=== PATIENT | female | born 1965 | race Caucasian/White ===

== ENCOUNTER → 2024-05-25 16:30 | Outpatient (REF) | payer OTHER, SELFPAY | LOC: HWRAD 16:30 | PROVIDERS: ATTENDING PHYSICIAN Podiatrist Foot & Ankle Surgery; FAMILY PHYSICIAN Nurse Practitioner | DX: M20.11 Hallux valgus (acquired), right foot (principal); M20.12 Hallux valgus (acquired), left foot; M84.374A Stress fracture, right foot, initial encounter for fracture | CPT/HCPCS: 73630 ==

== ENCOUNTER → 2024-06-16 15:41 | Outpatient (REF) | payer OTHER, SELFPAY | LOC: HWWDC 15:41 | PROVIDERS: ATTENDING PHYSICIAN Nurse Practitioner | DX: Z12.31 Encounter for screening mammogram for malignant neoplasm of breast (principal) | CPT/HCPCS: 77063; 77067 ==

== ENCOUNTER → 2025-01-03 16:40 | Outpatient (REF) | payer OTHER, SELFPAY | LOC: HWRAD 16:40 | PROVIDERS: ATTENDING PHYSICIAN Internal Medicine | DX: Z00.00 Encounter for general adult medical examination without abnormal findings (principal); M54.2 Cervicalgia | CPT/HCPCS: 72050 ==

== ENCOUNTER → 2025-10-05 14:37 | Outpatient (REF) | payer OTHER, SELFPAY | LOC: HWWDC 14:37 | PROVIDERS: ATTENDING PHYSICIAN Internal Medicine | DX: Z12.31 Encounter for screening mammogram for malignant neoplasm of breast (principal) | CPT/HCPCS: 77063; 77067 ==

== ENCOUNTER → 2025-10-06 18:17 | Outpatient (REF) | payer OTHER, SELFPAY | LOC: PAVMRI 18:17 | PROVIDERS: ATTENDING PHYSICIAN Internal Medicine | DX: M54.2 Cervicalgia (principal); G89.29 Other chronic pain; M54.50 Low back pain, unspecified | CPT/HCPCS: 72141 ==

== ENCOUNTER 2025-10-31 23:42 | Inpatient (IN) | payer OTHER, SELFPAY ==
[2025-10-31] VITALS (23 sets, daily range): BP systolic 106–152; BP diastolic 73–97; BMI 22.7
[2025-10-31 20:55] LABS: Hematocrit 36.8 % (37.0-47.0); Hemoglobin 12.4 g/dL (12.0-16.0); Mean Corp Hgb Conc. 33.7 g/dL (33.0-37.0); Mean Corpuscular Volume 89.1 fL (81.0-99.0); Platelet Count 175 10^3/uL (130-400); Red Cell Dist. Width 12.3 % (11.5-14.5)
[2025-10-31 21:04] LABS: ALT (SGPT) 14 U/L (0-35); AST (SGOT) 24 U/L (14-36); Albumin 4.0 g/dl (3.5-5.0); Alkaline Phosphatase 82 U/L (38-126); Blood Urea Nitrogen 12 mg/dl (7-17); Calcium 8.7 mg/dl (8.4-10.2); Carbon Dioxide 25 mmol/L (22-30); Chloride 102 mmol/L (98-107); Glucose 135 mg/dl (70-99); Potassium 3.3 mmol/L (3.5-5.1); Sodium 135 mmol/L (135-145); Total Protein 6.9 g/dl (6.3-8.2); eGFR > 60.00
[2025-10-31 21:17] LABS: Nucleated Red Blood Cells % 0 %
[2025-10-31 21:20] LABS: Troponin I 0.882 ng/ml
--- NOTE | 2025-10-31 21:44 | ED.GENMED ---
History of Present Illness
<Demar Everett PA-C - Last Filed: 10/31/25 23:27>
General
Chief Complaint: Chest Pain
Time Seen by Provider: 10/31/25 21:29
History of Present Illness
History of Present Illness:
59-year-old female with history of ohe-aefvios-utndmjrgi diabetes presents to the emergency department for evaluation of chest pain that began gradually and worsened throughout the day. She notes that she has had URI symptoms for the past 3 to 4
days, fever on day 1 that is since resolved. Mild cough as well. She was visiting her father today who has since passed however pain began prior to this. Chest pain is rated 6 out of 10, nonradiating, nonpleuritic. No exertional or positional
nature to the pain. No prior history of CAD.
Review of Systems
<Demar Everett PA-C - Last Filed: 10/31/25 23:27>
Review of Systems
Allergies reviewed?: Yes
All Other Systems: ROS reviewed and negative except as documented in HPI and ROS
Phy Exam
<Demar Everett PA-C - Last Filed: 10/31/25 23:27>
Physical Exam
Physical Exam:
GEN: Well appearing, NAD, WDWN
HEENT: Oral mucosa moist, no scleral icterus
Cardiac: Regular rate and rhythm, no murmur
Lung: No respiratory distress, no tachypnea, lungs clear to auscultation bilaterally
MSK: No gross deformity or injuries
Skin: Good color, no pallor or jaundice, no rashes
Neuro: AO x3, moves all extremities freely
Psych: Calm, cooperative
Scores
<Demar Everett PA-C - Last Filed: 10/31/25 23:27>
Heart Score for Chest Pain Patients
STEMI patient?: No
History: Moderately Suspicious
ECG: Normal
Age: >45 - <65 years
Risk Factors: 1 or 2 Risk Factors
Troponin: >/= 3 x Normal Limit
Heart Score for Chest Pain Patients: 5
Heart Score Risk: 20.3% MACE over next 6 weeks
<Wood Buenrostro MD - Last Filed: 10/31/25 23:37>
Heart Score for Chest Pain Patients
Heart Score for Chest Pain Patients: 5
Heart Score Risk: 20.3% MACE over next 6 weeks
Course
<Demar Everett PA-C - Last Filed: 10/31/25 23:27>
Orders/Labs/Results
Orders:
Orders
10/31/25 20:13
Electrocardiogram (*1) Urgent
Reason for Study: Other
Other Reason for Exam: Respiratory Distress
EKG- Treatment ONCE
CR Chest - 2 Views Urgent
Comment:
Reason For Exam: respiratory distress
10/31/25 20:29
C-Reactive Protein Urgent
Comment: ADD ON
Complete Blood Count/With Diff Urgent
Comprehensive Metabolic Panel Urgent
NT-proBNP Urgent
Comment: ADD ON
Troponin I Urgent
10/31/25 21:43
Add On- LAB Urgent
Tests Added?: CRP, BNP
Aspirin Chewable [Low Strength Aspirin] 324 mg PO NOW STA
10/31/25 21:45
Nitroglycerin 100 mg/250 ml [Nitroglycerin Premix] 100 mg in 250 ml IV PER PROTOCOL
Initial dose in mcg/min, then titrate:: 10
Titrate to keep:: Chest Pain Free
Titrate by mcg/min:: 5 mcg/min, may increase by 10 mcg/min if dose > 20 mcg/min
Frequency of titrations (minutes):: every 3-5 minutes
Maximum dose in mcg/min:: 200
Begin to taper infusion when:: Remained at goal for 2hrs
Taper by mcg/min:: 5 mcg/min
Frequency of taper (minutes) if patient maintains goal:: 30
Taper to off?: Yes
If infusion off & no longer maintaining goal:: Contact Provider
10/31/25 21:58
COVID-19 Antigen Urgent
Source: Nasal Swab
Influenza A+B Rapid Molecular Urgent
LUIGI Source: Nasal Swab
Specimen Description:
10/31/25 22:08
Heparin 3,600 units IV NOW STA
Nursing to Place Non Medication Order As Directed
Physician Order: PTT 6 hours after initial start of Heparin infusion
Above order entered?: Yes
10/31/25 22:15
Heparin 23534 Units/250 ml 25,000 units in 250 ml IV PER PROTOCOL
Weight to be used for heparin protocol in kilograms (kg):: 60
Protocol:: Cardiac Tx/Acute Coronary
PTT Goal Range to be used:: PTT 73 to 111 seconds
Order type:: Initial
INITIAL Infusion Dose (UNITS/KG/hr) & then follow protocol:: 15 units/kg/hr
Infusion Dose in UNITS/hr & then follow protocol (UNITS/hr):: 900
INFUSION RATE in mL/hr & then follow protocol (mL/hr):: 9
PTT less than or equal to 64 seconds:: Increase rate by 200 units/hr (+ 2 mL/hr)
PTT 64.1 to 72.9 seconds:: Increase rate by 100 units/hr (+ 1 mL/hr)
PTT 73 to 111 seconds:: Target Range. No change in rate.
PTT 111.1 to 130.9 seconds:: Decrease rate by 100 units/hr (- 1 mL/hr)
PTT 131 to 199.9 seconds:: HOLD for 1 hr. Then decrease rate by 200 units/hr (- 2 mL/hr)
PTT greater than or equal to 200 seconds:: HOLD for 2 hrs & Notify Provider. Then decrease by 200 units/hr (-
2 mL/hr)
Lab follow-up:: Each change, PTT q6h until 2 consecutive are therapeutic. Then PTT
daily.
10/31/25 22:34
PTT Urgent
Comment: Obtain baseline before beginning heparin infusion if not already collected
10/31/25 23:28
Admit/Transfer Patient As Directed
Co-Sign Provider:
Level of Care: Inpatient admission
Assign to:: IVU
Physician / Group: Ismael
Diagnosis: NSTEMI
Reason for Hospitalization: heparin drip, nitro drip
Expected length of stay greater than two midnights?: Yes
ELOS- Estimated Length of Stay in days: 3
I certify the patient meets the requirements for IP care: Yes
PRN Pain Medication Management As Directed
May give lesser potent ordered pain med per pt: Yes
preference::
Protocol:: Medication orders for pain may be administered in a
manner that supports deferring to patient preference
when the pt is:
- Requesting an ordered lesser potent pain medication.
Least to most potent pain medications are defined
as: acetaminophen < NSAID < tramadol < opioids
(morphine, oxycodone, hydromorphone).
- Requesting a lesser dose of the same medication IF
ORDERED.
- Requesting a less intrusive route of administration
if both routes are prescribed by the provider (PO <
IV).
10/31/25 23:33
Code Status As Directed
Resuscitation Status: Full Code
11/01/25 04:27
PTT Routine
Abnormal Lab Results
10/31/25 10/31/25
20:29 21:58
RBC 4.13 L 10^6/uL
(4.20-5.40)
Hct 36.8 L %
(37.0-47.0)
Neutrophils % 34.7 L %
(42.2-75.2)
Lymphocytes % 57.1 H %
(20.5-51.1)
Potassium 3.3 L mmol/L
(3.5-5.1)
Glucose 135 H mg/dl
(70-99)
Troponin I 0.882 H* ng/ml
C-Reactive Protein 44.50 H mg/L
(0.0-10.00)
SARS-CoV-2 Antigen Positive A
(Negative)
10/31/25 20:29
10/31/25 20:29
Vital Signs
Initial and Last Documented VS:
Initial Vital Signs
Temp Pulse Resp BP Pulse Ox
97.8 F 89 18 152/86 100
10/31/25 20:19 10/31/25 20:19 10/31/25 20:19 10/31/25 20:19 10/31/25 20:19
Last Documented Vital Signs
Temp Pulse Resp BP Pulse Ox
97.8 F 100 12 123/86 96
10/31/25 20:19 10/31/25 22:45 10/31/25 22:45 10/31/25 22:45 10/31/25 22:45
<Wood Buenrostro MD - Last Filed: 10/31/25 23:37>
Orders/Labs/Results
Orders:
Orders
10/31/25 20:13
Electrocardiogram (*1) Urgent
Reason for Study: Other
Other Reason for Exam: Respiratory Distress
EKG- Treatment ONCE
CR Chest - 2 Views Urgent
Comment:
Reason For Exam: respiratory distress
10/31/25 20:29
C-Reactive Protein Urgent
Comment: ADD ON
Complete Blood Count/With Diff Urgent
Comprehensive Metabolic Panel Urgent
NT-proBNP Urgent
Comment: ADD ON
Troponin I Urgent
10/31/25 21:43
Add On- LAB Urgent
Tests Added?: CRP, BNP
Aspirin Chewable [Low Strength Aspirin] 324 mg PO NOW STA
10/31/25 21:45
Nitroglycerin 100 mg/250 ml [Nitroglycerin Premix] 100 mg in 250 ml IV PER PROTOCOL
Initial dose in mcg/min, then titrate:: 10
Titrate to keep:: Chest Pain Free
Titrate by mcg/min:: 5 mcg/min, may increase by 10 mcg/min if dose > 20 mcg/min
Frequency of titrations (minutes):: every 3-5 minutes
Maximum dose in mcg/min:: 200
Begin to taper infusion when:: Remained at goal for 2hrs
Taper by mcg/min:: 5 mcg/min
Frequency of taper (minutes) if patient maintains goal:: 30
Taper to off?: Yes
If infusion off & no longer maintaining goal:: Contact Provider
10/31/25 21:58
COVID-19 Antigen Urgent
Source: Nasal Swab
Influenza A+B Rapid Molecular Urgent
LUIGI Source: Nasal Swab
Specimen Description:
10/31/25 22:08
Heparin 3,600 units IV NOW STA
Nursing to Place Non Medication Order As Directed
Physician Order: PTT 6 hours after initial start of Heparin infusion
Above order entered?: Yes
10/31/25 22:15
Heparin 29253 Units/250 ml 25,000 units in 250 ml IV PER PROTOCOL
Weight to be used for heparin protocol in kilograms (kg):: 60
Protocol:: Cardiac Tx/Acute Coronary
PTT Goal Range to be used:: PTT 73 to 111 seconds
Order type:: Initial
INITIAL Infusion Dose (UNITS/KG/hr) & then follow protocol:: 15 units/kg/hr
Infusion Dose in UNITS/hr & then follow protocol (UNITS/hr):: 900
INFUSION RATE in mL/hr & then follow protocol (mL/hr):: 9
PTT less than or equal to 64 seconds:: Increase rate by 200 units/hr (+ 2 mL/hr)
PTT 64.1 to 72.9 seconds:: Increase rate by 100 units/hr (+ 1 mL/hr)
PTT 73 to 111 seconds:: Target Range. No change in rate.
PTT 111.1 to 130.9 seconds:: Decrease rate by 100 units/hr (- 1 mL/hr)
PTT 131 to 199.9 seconds:: HOLD for 1 hr. Then decrease rate by 200 units/hr (- 2 mL/hr)
PTT greater than or equal to 200 seconds:: HOLD for 2 hrs & Notify Provider. Then decrease by 200 units/hr (-
2 mL/hr)
Lab follow-up:: Each change, PTT q6h until 2 consecutive are therapeutic. Then PTT
daily.
10/31/25 22:34
PTT Urgent
Comment: Obtain baseline before beginning heparin infusion if not already collected
10/31/25 23:28
Admit/Transfer Patient As Directed
Co-Sign Provider:
Level of Care: Inpatient admission
Assign to:: IVU
Physician / Group: Ismael
Diagnosis: NSTEMI
Reason for Hospitalization: heparin drip, nitro drip
Expected length of stay greater than two midnights?: Yes
ELOS- Estimated Length of Stay in days: 3
I certify the patient meets the requirements for IP care: Yes
PRN Pain Medication Management As Directed
May give lesser potent ordered pain med per pt: Yes
preference::
Protocol:: Medication orders for pain may be administered in a
manner that supports deferring to patient preference
when the pt is:
- Requesting an ordered lesser potent pain medication.
Least to most potent pain medications are defined
as: acetaminophen < NSAID < tramadol < opioids
(morphine, oxycodone, hydromorphone).
- Requesting a lesser dose of the same medication IF
ORDERED.
- Requesting a less intrusive route of administration
if both routes are prescribed by the provider (PO <
IV).
10/31/25 23:33
Code Status As Directed
Resuscitation Status: Full Code
11/01/25 04:27
PTT Routine
Abnormal Lab Results
10/31/25 10/31/25
20:29 21:58
RBC 4.13 L 10^6/uL
(4.20-5.40)
Hct 36.8 L %
(37.0-47.0)
Neutrophils % 34.7 L %
(42.2-75.2)
Lymphocytes % 57.1 H %
(20.5-51.1)
Potassium 3.3 L mmol/L
(3.5-5.1)
Glucose 135 H mg/dl
(70-99)
Troponin I 0.882 H* ng/ml
C-Reactive Protein 44.50 H mg/L
(0.0-10.00)
SARS-CoV-2 Antigen Positive A
(Negative)
10/31/25 20:29
10/31/25 20:29
Vital Signs
Initial and Last Documented VS:
Initial Vital Signs
Temp Pulse Resp BP Pulse Ox
97.8 F 89 18 152/86 100
10/31/25 20:19 10/31/25 20:19 10/31/25 20:19 10/31/25 20:19 10/31/25 20:19
Last Documented Vital Signs
Temp Pulse Resp BP Pulse Ox
97.8 F 100 12 123/86 96
10/31/25 20:19 10/31/25 22:45 10/31/25 22:45 10/31/25 22:45 10/31/25 22:45
<Demar Everett PA-C - Last Filed: 10/31/25 23:27>
MDM/Problems Addressed
MDM/Problems Addressed:
Suspect ACS particularly given lack of clinical syndrome of CHF to suggest post-COVID myocarditis, in addition her pain is improving on IV nitroglycerin supporting the diagnosis of ACS. Patient probably started on heparin and will be admitted to
the hospitalist service for further management
<Demar Everett PA-C - Last Filed: 10/31/25 23:27>
Comment
Comment:
EKG independently interpreted by me shows normal sinus rhythm with no ST changes concerning for ischemia
*Pulse Oximetry
SaO2: 100
Oxygen Mode of Delivery: Room air
Patient hypoxic: no
*Critical Care Note
Total Time (30-74mins, 75-104mins- exclusive of procedures): 40 min
comment:
Critical care time: 40 minutes
Critical care time was exclusive of: Separately billable procedures, treating other patients, and teaching time
Critical care was necessary to treat or prevent imminent or life-threatening deterioration of the following conditions: Acute coronary syndrome/NSTEMI
Critical care time spent personally by me on the following activities:
[x] Review of old charts
[x] Obtaining history from patient or surrogate
[x] Ordering and review of the laboratory studies
[x] Ordering and review of radiographic studies
[x] Ordering and performing treatments and interventions
[x] Patient patient's response to treatment
[x] Development of treatment plan with patient or surrogate
ED Attending Note
<Demar Everett PA-C - Last Filed: 10/31/25 23:27>
-
Portions of this chart may have been created with voice recognition software.� Occasional wrong word or��sound alike� substitutions may have occurred due to the inherent limitations of voice recognition software.
<Wood Buenrostro MD - Last Filed: 10/31/25 23:37>
ED Attending Note
Patient seen and examined by attending physician: Yes
I performed the substantive portion of visit, reviewed & personally made and approve the management plan that is documented in note by myself or KEILA.: Yes
ED Attending Note:
59-year-old female complaining of chest discomfort. Midsternal. No radiation to the back arms and neck. Nonpleuritic. Started earlier today. On the road significant stress with her father passing this afternoon. Also has had URI type symptoms
for 2 or 3 days. No cardiac history. History of diabetes. No smoking.
On exam patient is nontoxic in no distress. Warm and dry. Lungs clear and equal. Heart regular rate and rhythm. Abdomen nontender. Extremities are unremarkable. Grossly nonfocal. EKG within normal limits. Troponin is positive. Chest x-ray
negative.
Non-STEMI NC. Possible Takotsubo's doubt myocarditis. Highly doubt PE. Heparin nitroglycerin. Patient is comfortable at this time. Referred to hospitalist and surgery
Discharge Plan
Departure
Patient Disposition: Admit
Date of Disposition: 10/31/25
Time of Disposition: 22:58
Admit to: IVU
Presentation/result/management discussed w/ accepting MD/DO: Hospitalist
Discharge Problem:
Non-ST elevation NC (NSTEMI)
Prescriptions:
No Action
Mounjaro 15 mg/0.5 mL pen injector
15 mg SC WEEKLY
Interventions
Interventions:
*General Assessment Last Done: 10/31/25 20:23
*Neglect/Abuse Screening Last Done: 10/31/25 21:46
*ED COVID-19 Vaccine History Last Done: 10/31/25 20:23
*ED Influenza Vaccine History Last Done: 10/31/25 20:23
[facility] Risk Assessment Tool Last Done: 10/31/25 21:46
*Risk Screen - Suicide (C-SSRS) Last Done: 10/31/25 20:23
ED- Cardiac Assessment Last Done: 10/31/25 21:40
Discharge Date and Time
Print Language: IRISH
[2025-10-31] MEDS: LOW STRENGTH ASPIRIN 324 MG PO (21:54)
[2025-10-31] MEDS: NITROGLYCERIN PREMIX 250 IV (22:16)
[2025-10-31 22:27] LABS: COVID-19 Antigen Positive (Negative)
[2025-10-31] MEDS: HEPARIN 3600 UNITS IV (22:39)
[2025-10-31] MEDS: HEPARIN 25000 UNITS/250 ML IV (22:43)
--- NOTE | 2025-10-31 23:12 | HPS.HSE ---
Addendum entered and electronically signed by Stevie Guevara DO 11/01/25 00:02:
Patient seen and examined independently. Agree with findings and plan as set forth by Fariba Pwoell PA-C.
Patient is a 59y F with PMH significant for DM-II who presents to ED complaining of chest pain. Patient reports extremely stressful period of time in her life with both parents ill and her father passing away earlier today. Patient notes that
she developed substernal chest pressure earlier today prior to her father's passing. This pain progressed in severity throughout the afternoon and she presented to the ED for further evaluation. No personal history of AR, CVA, etc.
Patient also reports respiratory symptoms x 3 days and she is COVID-19 positive in the ED today.
Ass:
NSTEMI
COVID-19 Infection
Mild Hypokalemia
DM-II
Plan;
Admit for further evaluation and treatment.
IV heparin, IV NTG, daily ASA, etc.
Follow serial troponin. Follow EKG.
Monitor for any recurrent / worsening symptoms.
Cardiology evaluation for further recommendations / probable ischemic evaluation.
No role for COVID-specific therapies at present. Follow proper precautions and monitor for fever, hypoxemia, etc.
Follow glucose, update A1C.
Adjust med regimen prior to discharge for BP control, DM control, risk reduction, etc.
Original Note:
Family Physician
-
Family Physician: Benita Newton DO
Chief Complaint
-
Chest Pain
History of Present Illness
Patient is a 59 y/o female past medical history of diabetes mellitus who presents with chest pain. Patient describes a constant chest pressure that began earlier today and has gotten worse over the coarse of the afternoon. She denies any
alleviating or aggravating factors. She reports she has been under a lot of stress related to the recent illnesses of both of her parents, and the passing of her father today. Patient reports three days ago she started with an upper respiratory
infection. She notes low grade fever on Friday associated with mostly nasal congestion and mild cough.
While in the emergency department patient was started on a nitroglycerin drip with improvement in her pain from 05/12 down to 11/12.
Medical History
Past Medical History
Past Medical History: Reports Other
Additional Past Medical History:
Diabetes Mellitus, Type II
Hyperlipidemia
Past Surgical History: Reports Other
Additional Past Surgical History:
Carpal Tunnel
Social History
Tobacco: Non-smoker
Alcohol: Occasional
Family History
Family History: Not pertinent
Allergies / Home Medications
Allergies reflects when Allergies were last updated in [facility] [employer].
Home Medications with original date entered in [facility] [employer]
Allergy/Medication List:
Allergies
Allergy/AdvReac Type Severity Reaction Status Date / Time
No Known Allergies Allergy Verified 10/31/25 20:25
Home Medications
tirzepatide 15 mg/0.5 mL subcutaneous pen injector (Mounjaro) 15 mg SC WEEKLY 10/31/25
Review of Systems
-
History Source: Patient
A 12 point ROS was completed and negative except as noted: Yes
Physical Exam
Vital Signs
Vital Signs
Temp Pulse Resp BP Pulse Ox
97.8 F 100 12 123/86 96
10/31/25 20:19 10/31/25 22:45 10/31/25 22:45 10/31/25 22:45 10/31/25 22:45
Physical Exam
General: Comfortable and Conversant
HEENT: Anicteric and Moist mucous membranes
Respiratory: Clear and Non Labored Respirations
Cardiac: S1/S2 and Regular Rhythm
GI: Soft and Non Distended
Rectal: Deferred by Provider
Musculoskeletal: No Clubbing, No Cyanosis and No Edema
Skin: Warm and Dry
Neuro: Awake, Alert, Oriented and Nonfocal/grossly intact
Psych: Calm
Laboratory Results
-
10/31/25 20:
10/31/25:
Laboratory Results
Total Bilirubin 0.4 mg/dl (0.2-1.3) 10/31/25 20:
AST 24 U/L (14-36) 10/31/25 20:
ALT 14 U/L (0-35) 10/31/25
Alkaline Phosphatase 82 U/L (38-126) 10/31/25 20:
Troponin I 0.882 ng/ml H* 10/31/25:
Data Reviewed
-
Lab Data: Labs Reviewed by me
Impression/Plan
-
Non-ST Elevation AR
-Admit to IVU
-Consult Cardiology
-Continue aspirin
-Continue heparin drip
-Continue nitro drip
-Check HgbA1c and Lipid Panel
-NPO after midnight for possible cardiac cath
COVID-19 Viral Infection
-Continue support care
Hypokalemia, mild
-Replace potassium
-Recheck level in AM
Diabetes Mellitus, Type II
-Patient maintained on Mounjaro as outpatient
-Monitor sugars and continue coverage insulin
DVT Proph: Heparin drip
Code Status: Full Code
[2025-10-31 23:19] LABS: C-Reactive Protein 44.50 mg/L (0.0-10.00)
[2025-10-31 23:42] LABS: APTT 30.4 Sec (23.4-35.0)
[2025-11-01] VITALS (35 sets, daily range): BP systolic 90–124; BP diastolic 63–105; BMI 21.9; BMI 22.7
[2025-11-01] MEDS: KCL 40 MEQ PO (00:26)
[2025-11-01] MEDS: FLUSH (NSS) 1 FLUSH IV (00:28)
[2025-11-01 01:26] LABS: Troponin I 2.210 ng/ml
[2025-11-01] MEDS: TYLENOL 650 MG PO (02:16)
--- NOTE | 2025-11-01 03:04 | PTCARENOTE ---
Pt admitted to room 2255 with chest pain. Pt denies chest pain at that time. HERNANDEZ 12/13. Pt on Heparin gtt and nitro gtt. Pt oriented to the room. independent, call perera within reach NPO for possible cath in am
[2025-11-01 04:42] LABS: Hematocrit 32.3 % (37.0-47.0); Hemoglobin 11.2 g/dL (12.0-16.0); Mean Corp Hgb Conc. 34.7 g/dL (33.0-37.0); Mean Corpuscular Volume 88.7 fL (81.0-99.0); Platelet Count 162 10^3/uL (130-400); Red Cell Dist. Width 12.1 % (11.5-14.5)
[2025-11-01 04:54] LABS: APTT 149.3 Sec (23.4-35.0)
[2025-11-01 05:06] LABS: Blood Urea Nitrogen 10 mg/dl (7-17); Calcium 8.6 mg/dl (8.4-10.2); Carbon Dioxide 23 mmol/L (22-30); Chloride 109 mmol/L (98-107); Estimated Creatinine Clearance 86 ml/min; Glucose 87 mg/dl (70-99); HDL Cholesterol 41 mg/dl; LDL Cholesterol, Calculated 78 mg/dl; Magnesium 1.9 mg/dl (1.6-2.3); Potassium 4.0 mmol/L (3.5-5.1); Sodium 137 mmol/L (135-145); Very Low Density Lipoprotein 15 mg/dl (0-30); eGFR > 60.00
[2025-11-01 06:13] LABS: Glucose - Point of Care 91 mg/dl (70-99)
[2025-11-01 06:58] LABS: Troponin I 1.370 ng/ml
--- NOTE | 2025-11-01 07:09 | CON.CAR ---
Addendum entered and electronically signed by Radha Rosales DO 11/01/25 15:03:
I saw and examined the patient.
The Transactional Paralegal's note was reviewed and I agree with the note.
Comment: Patient was seen and examined with at bedside. She is currently chest pain-free and denies shortness of breath/cough. We reviewed presenting complaints, lab, and echocardiogram findings.
General: No acute distress, AAOX3. Lying supine on room air with surgical mask as she is COVID-positive
Neck: Negative JVD. no bruit
Heart: Regular, positive S1/S2, No murmur
Lungs: CTA b/l, negative wheezes/rales/rhonchi
Abd: Positive BS, NT/ND, neg rebound/rigidity/guarding
Ext: no edema.
Neuro: nonfocal
Plan:
59-year-old female with past medical history of type 2 diabetes mellitus presents who has normalized her hemoglobin A1c since starting Mounjaro in January 2025 and has been under immense life stress with illnesses in both of her parents including her
father who was on hospice and sadly yesterday. Patient developed upper respiratory symptoms with low-grade temperature on Sunday 10/28 and presented to [facility] ED 10/31 2025 with persistent substernal chest pressure that it
started earlier that morning found to have COVID infection and non-STEMI
Non-STEMI with chest pain
- Initial cardiac troponin 0.882 --> 2.21 --> 1.37
- Currently chest pain-free on IV nitroglycerin drip. Wean nitroglycerin drip if able.
- 2D echocardiogram reviewed with patient and at bedside. Moderate to severely reduced LV systolic function with left ventricular ejection fraction estimated 25-30% with multi regional severe hypokinesis of the mid distal segments including
apical cap
-Fortunately she appears hemodynamically stable with no symptoms suggestive for acute heart failure
- Ischemic versus Takotsubo's cardiomyopathy. Will proceed with left heart catheterization to exclude ischemia.
-FLP: LDL 78, HDL 41, total cholesterol 134, triglycerides 79. Started atorvastatin 20 mg every afternoon
-Continue aspirin and IV heparin
-Carvedilol 3.125 mg twice daily initiated.
- Telemetry personally reviewed: Normal sinus rhythm/sinus tachycardia 87-120 bpm
-Further recommendations pending left heart cath finding
COVID-positive
-Not hypoxic with normal chest x-ray on room air
- Precautions for COVID
Discussed with patient and at bedside.
Original Note:
Consultation
Consultation Request
Date/Time Consultation Requested: 10/31/2025, 0138
Date/Time Consultation Performed: 10/31/2025, 0710
Requesting Provider: Fariba Powell PA-C
Performing Provider: HANH Gonzales for Dr Rosales
Reason for Consultation: chest pain
Medical History
-
Chief Complaint: chest pressure
History of Present Illness:
59-year-old female with past medical history of diabetes mellitus presents to ED 10/31/2025 with chest pain, described as a substernal pressure, starting morning of presentation. She has been under increased stress with both of her parents being
ill including her mother hospitalized last week and her father passing away 10/31/2025. He had been in a prison in hospice. Patient had cold-like symptoms starting 10/28/2025 including nasal congestion, mild cough, and low-grade fever. She
spent 2 days in bed. Yesterday when she was getting ready to go visit her father at the prison she noted mild pressure in her chest. It persisted throughout the day and a family member checked her blood pressure and it was elevated. She
decided to present to the ED at which time she had 6-7/10 pressure. Pressure does not radiate and there is no associated shortness of breath, nausea, diaphoresis.
EKG normal sinus rhythm, nonischemic. Troponin 2.21�>1.37.
Tested positive for COVID.
She was administered aspirin and started on heparin and nitro drip. Currently on nitro 40 and reporting 1/10 chest pressure. Nitro dose had been down titrated but chest pain became worse.
Past medical history:
Diabetes mellitus, diagnosed within past year and started on Mounjaro
Past Medical History
Past Medical History: NIDDM
Past Surgical History: Other (Carpal tunnel)
Social History
Tobacco: Former Smoker (1 pack/day for approximately 15 years, quit many years ago)
Alcohol: Occasional
Drug: None
Personal:
Living: With Family
Employment: Employed (Desk work)
Family History
Family History: Other (Maternal grandmother with heart problems)
Allergies / Home Medications
Allergy/AdvReac Type Severity Reaction Status Date / Time
No Known Allergies Allergy Verified 10/31/25 20:25
�Medication �Instructions �Recorded �Confirmed �Type
tirzepatide 15 mg/0.5 mL 15 mg SC WEEKLY 10/31/25 10/31/25 History
subcutaneous pen injector
(Mounjaro)
Review of Systems
-
History Source: Patient
Constitutional: No Symptoms
Physical Exam
Vital Signs
Temp Pulse Resp BP Pulse Ox
97.7 F 87 16 113/84 98
11/01/25 04:13 11/01/25 02:30 11/01/25 04:13 11/01/25 01:35 11/01/25 04:13
Lab Results
11/01/25 04:22
11/01/25 04:21
Troponin I 1.370 ng/ml H* D 11/01/25 06:17
Rpn-L-Kpeoerdncob Pept 45.2 pg/ml 10/31/25 20:29
GEN: No distress, awake, Ox3
HEENT: supple, anicteric, mmm
LUNGS: CTA, no wheezes/rales
CV: Reg, S1/S2,
EXT: No edema
NEURO: Gross non-focal
SKIN: No rash
Impression / Plan
-
PCP: Benita Newton
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
Impression:
Non-ST elevation MO
Chest pain
Type 2 diabetes mellitus
COVID-19
Increased family stressors
Plan: 59-year-old female with past medical history of diabetes mellitus presents to ED 10/31/2025 with one day h/o substernal pressure, starting morning of presentation, in setting of increased family stressors over past week including of her
father day of presentation. Also with recent URI symptoms. Had 6-7/10 chest pressure upon presentation to ED with nonischemic EKG and troponin elevated at 2.21, down trended to 1.37. Patient administered aspirin and started on heparin and
nitroglycerin drip, currently on nitro at 40 mcg/min with 1/10 chest pressure.
Tested positive for COVID.
-repeat EKG
-Continue trending troponins
-check echo now�I ordered
-? Takotsubo
-NPO for C today
-FLP: LDL 78, HDL 41, total cholesterol 134, triglycerides 79. Start statin
- Telemetry personally reviewed: Normal sinus rhythm/sinus tachycardia 87-120 bpm
- Precautions for COVID
Discussed with patient and at bedside.
Data Reviewed
-
EKG: Tracing Personally Visualized and interpreted
Labs: Labs Reviewed by me
[2025-11-01 08:45] LABS: Glycohemoglobin (HgbA1c) 5.3 % (4.0-5.9)
[2025-11-01] MEDS: LOW STRENGTH ASPIRIN 81 MG PO (09:31)
[2025-11-01] MEDS: COREG 3.125 MG PO (10:10)
--- NOTE | 2025-11-01 10:44 | CM ---
Chart reviewed. Patient has been under a lot of stress, mother in group home and father just recently . Patient is independent of ADLS, lives with her in a 1 STH, 4 JC, 0 DME. Patient is waiting to go for a LH. Plan is for the
patient to return home. CM to follow
[2025-11-01 13:09] LABS: APTT 70.2 Sec (23.4-35.0)
--- NOTE | 2025-11-01 15:36 | ITS.CL.CATH ---
Vascular Ultrasound Technician - Catheterization
Cardiac Catheterization
Procedure Report:
LEFT HEART CATHETERIZATION
Date of Procedure: November 01, 2025
Referring: Dr. Radha Rosales
PROCEDURES:
1. Left heart catheterization with coronary and single-plane left ventriculography
INDICATION: This is a 59-year-old female with a past medical history notable for diabetes mellitus. She has been under a tremendous amount of stress with her father passing away the day prior to admission while on hospice and she developed upper
respiratory symptoms and low-grade fever and was found to be COVID-positive. She presented with chest discomfort and troponin became modestly elevated. An echocardiogram was performed and she was found to have moderate to severe LV dysfunction
with anterior and apical hypokinesis with an estimated ejection fraction of 25-30%. She is now referred for coronary angiography.
ACCESS: Right radial artery, 6 Greek sheath
HEMODYNAMICS : (mmHg)
AO (s/d) : 112/71, 91
LV (s/d) : 132/10
LVEDP : 26
CORONARY FINDINGS
DOMINANCE: Left
LEFT MAIN: Normal
LEFT ANTERIOR DESCENDING: The LAD arises normally from the left main and runs in the anterior interventricular groove. The LAD is free of significant atherosclerotic disease. The distal vessel wraps completely around the apex supplying a
significant portion of the inferior wall
CIRCUMFLEX: The circumflex is a moderate caliber dominant vessel that is widely patent over its course
RIGHT CORONARY ARTERY: Small nondominant
VENTRICULOGRAPHY: Left ventriculography is performed in an MAURER projection. The digital single-plane left ventricular ejection fraction is estimated at 30% with mid to distal anterior, apical, and inferoapical hypokinesis noted
SEDATION: 25 minutes of procedural sedation was utilized. An independent medical technologist clinical was present to assist with and help manage the patient's level of consciousness and physiologic status.
RADIATION SUMMARY: Fluoro Time (min): 2.7, Dose (mGy): 92.2, DAP (Gy.cm2) : 7.9
Closure Device: TR band
CONCLUSIONS
1. Nonobstructive coronary disease
2. Moderate LV dysfunction with regional wall motion abnormalities consistent with a Takotsubo's type cardiomyopathy
RECOMMENDATIONS
1. Aspirin 81 mg daily
2. Toprol-XL 12.5 mg p.o. twice daily with titration as blood pressure and heart rate tolerate. Hold parameters are written
3. Moderate intensity statin given diabetes
Copy to: Dr. Radha Rosales
--- NOTE | 2025-11-01 16:55 | W.PN.HOSP.TC ---
Today's Communication/Plan
-
Assessment / Plan
Assessment / Plan
General: No Apparent Distress, Comfortable and Conversant
HEENT: NormoCephalic, Moist mucous membranes, Atraumatic
Respiratory: Clear and Non Labored Respirations
Cardiac: S1/S2 and Regular Rhythm; No Rub or Gallop
GI: Soft, Non Tender, Non Distended and Normal Bowel Sounds
Musculoskeletal: No Edema, no deformity
Skin: Warm and dry
: NO Martinez
Neuro: Awake, Alert, Nonfocal/grossly intact
Psych: Calm and Intact Judgment/Insight
Ms. Avila is a 59-year-old female with a medical history of NIDDM (now with normal blood sugars and A1c after starting Mounjaro in January 2025) who presented with substernal chest pressure. She has been under a lot of stress recently with the
illness of both of her parents and the of her father 1 day prior to presentation. She was found to have elevated and rising troponins. She was started on IV heparin drip and nitroglycerin drip. She has been admitted for further evaluation
and management.
NSTEMI:
- Continued on IV heparin drip
- Brought to Head Mechanic today 11/01 with no obstructive coronary disease identified
- Moderate LV dysfunction noted with regional wall motion abnormalities consistent with Takotsubo's cardiomyopathy
- Started on metoprolol succinate 12.5 mg p.o. twice daily
- Continue aspirin and statin
- IV heparin and nitroglycerin drips discontinued
- Appreciate cardiology guidance
Takotsubo's cardiomyopathy:
- Suspect due to recent social stressors including of her father just 1 day prior to arrival
- Plan as above
- Cardiology following
COVID-19:
- Severe respiratory symptoms
- Continue isolation precautions
- Monitor
NIDDM:
- Currently well-controlled after starting on Mounjaro
- Hemoglobin A1c 5.3%
DVT prophylaxis: Lovenox
CODE STATUS: Full code
Anticipated Discharge: 24 - 48 hours
Subjective/Interval History
-
Date of Service: November 01, 2025
Patient was seen and examined at bedside. Currently chest pain-free. Awaiting Head Mechanic with cardiology.
Objective Data
-
Labs:
Laboratory Results
11/01/25 11/01/25 11/01/25
04:21 12:26 19:30
APTT 149.3 H 70.2 H Cancelled
Sodium 137
Potassium 4.0
Chloride 109 H
Carbon Dioxide 23
BUN 10
Creatinine 0.6
Glucose 87
Calcium 8.6
Vital Signs:
Vital Signs
Temp Pulse Resp BP Pulse Ox
98.7 F 89 18 119/80 97
11/01/25 11:23 11/01/25 16:15 11/01/25 11:23 11/01/25 16:15 11/01/25 11:23
I&O
10/31/25 11/01/25 11/02/25
06:59 06:59 06:59
Intake Total 190 / 190
Balance 190 / 190
Review of Systems
-
History Source: Patient
All other systems: Reviewed and negative
Physical Exam
-
General: No Apparent Distress
[2025-11-01] MEDS: LIPITOR 20 MG PO (17:44)
--- NOTE | 2025-11-01 18:55 | PTCARENOTE ---
~7811-0164: Handoff report received. Pt AOx4, NSR/ ST 90s-100s, SBP 100s, RA satting 98%. Pt states CP is 1/10 and gets worse with a deep breath. Nitro gtt infusing @ 40 and Heparin gtt infusing @ 700. ECHO completed. Dr. Rosales in to speak with
patient and echo reviewed bedside. EKG obtained. Coreg added by Cardiology and given. Per Dr. Rosales, wean nitro gtt as tolerated. All needs met at this time, call perera within reach.
~9737-7304: Patient Hgb A1C 5.3, Messaged hospitalist to see about insuin and ACHS orders, orders dc'd.
~3740-2061: Bloodwork obtained and sent to lab.
~1572-1518: PTT resulted, Heparin gtt titrated per protocol. Pt remains NPO at this time for CCL.
~8677-9812: Patient taken to CCL in stable condition.
~1600: patient returned back to room from CCL in stable condition. Nitro gtt dc'd at this time. R radial TR band in place, no oozing or hematoma noted at this time. Post-op fluid infusing. PT AOx4, NSR 80s, SBP 100s-120s, RA satting hgih 90s.
Patient educated on R wrist restrictions, patient verbalized understanding. All needs met at this time, call perera within reach.
~1630: Attempt to remove air from TR band, site oozing, air replaced.
~1700: Attempt to remove air from TR band, site oozing, air replaced.
~6737-1016: Air able to be removed from TR band with no oozing. patient independent in room. VSS. Patient changed into PJs with tele box in pouch. All needs met at this time, call perera within reach. Handoff report given to nightshift RN.
[2025-11-01] MEDS: TOPROL XL 12.5 MG PO (19:32)
[2025-11-01] MEDS: TYLENOL 1000 MG PO (19:32)
--- NOTE | 2025-11-01 23:33 | PTCARENOTE ---
Pt. has no complaints chest pain/discomfort, VSS, NSR on the monitor. Right radial band able to removed without difficulty, no oozing or hematoma. Medicated with Tylenol ES for headache with adequate relief obtained, pt. resting quietly.
[2025-11-02 02:26] VITALS: BP 113/83
[2025-11-02 03:26] LABS: Blood Urea Nitrogen 9 mg/dl (7-17); Calcium 8.5 mg/dl (8.4-10.2); Carbon Dioxide 23 mmol/L (22-30); Chloride 106 mmol/L (98-107); Estimated Creatinine Clearance 74 ml/min; Glucose 85 mg/dl (70-99); Potassium 4.0 mmol/L (3.5-5.1); Sodium 136 mmol/L (135-145); eGFR > 60.00
[2025-11-02 03:35] LABS: Hematocrit 34.7 % (37.0-47.0); Hemoglobin 11.6 g/dL (12.0-16.0); Mean Corp Hgb Conc. 33.4 g/dL (33.0-37.0); Mean Corpuscular Volume 89.4 fL (81.0-99.0); Platelet Count 159 10^3/uL (130-400); Red Cell Dist. Width 12.2 % (11.5-14.5)
[2025-11-02 05:04] LABS: Absolute Neutrophils -Man Diff 1.0 10^3/uL (1.4-6.5)
[2025-11-02 05:15] LABS: Normal RBC Morphology Yes; Platelets Checked Yes; Total Cells Counted 100
[2025-11-02 07:25] VITALS: BP 117/63
[2025-11-02] MEDS: TOPROL XL 12.5 MG PO (07:25)
[2025-11-02] MEDS: LOW STRENGTH ASPIRIN 81 MG PO (07:25)
[2025-11-02] MEDS: TYLENOL 650 MG PO ×2 (07:25→11:57)
[2025-11-02 11:31] VITALS: BP 118/81
--- NOTE | 2025-11-02 11:46 | W.PN.CARDCBS ---
Addendum entered and electronically signed by Mateo Carlos MD 11/02/25 17:03:
59-year-old woman admitted with Takotsubo cardiomyopathy in the setting of the of her father.
PMH/PSH: Type 2 diabetes
Medications: Aspirin 81 mg a day, atorvastatin 20 mg a day, metoprolol ER 12.5 mg twice daily, subcu Lovenox, lisinopril 2.5 mg daily
Rest of history as below. Reviewed in detail and agree unless otherwise specified
118/81, pulse 95, respiratory rate 18, afebrile, head neck exam unremarkable lungs clear, regular rate and rhythm without murmurs or gallops, abdomen benign extremities without clubbing cyanosis or edema puncture site intact
Hemoglobin 11.6 platelets 159, BUN and creatinine 9 and 0.7
ECG: Sinus rhythm, anterolateral T wave inversions, relative preservation of precordial R waves nonspecific inferior T wave
Echo: EF 25-30% LAD distribution abnormality mild mitral regurgitation, normal aortic valve, pulmonary artery systolic pressure 31
Impression:
Takotsubo syndrome
Type 2 diabetes
COVID-19
Family stressors
Other diagnoses as below, reviewed in detail and agree
Plan:
Despite traumatic EKG changes and reduction in EF she looks well. She strongly desires to go home. We discussed staying another day versus going home and agreed that she could leave.
We will arrange for follow-up.
Original Note:
Today's Communication / Plan
-
Doing well continue Toprol. Lisinopril added today
Continue Lipitor given known diabetes
Continue baby aspirin
Educated on symptoms of heart failure given risk associated with reduced EF
in SR
cardiac rehab
OP cardiac follow up arranged
plan for DC to home today
Impression / Plan
-
PCP: Benita Newton
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
Impression:
Chest pain
Nonobstructive CAD by cath 11/02/25
Takotsubo CM, EF 25-30%
Type 2 diabetes mellitus
COVID-19+
Increased family stressors
ECHO 11/01/25: EF 25 to 30% with multi regional wall motion abnormalities with akinesis involving mid to distal anteroseptum, mid to distal anterior, mid inferior, mid inferior septum, apical septum, apical lateral, apical inferior and apical With
preserved contraction of basal segments, no left apical thrombus identified, no significant valvular disease, PAP 31 mmHg
Plan:
- Patient presented with significant substernal chest pain in setting of of her father day of presentation to ER.
- Troponin peaked at 2.2
- Underwent cardiac catheterization 11/02/2025 with nonobstructive coronary disease
- Echocardiogram with results as above, consistent with Takotsubo cardiomyopathy
- no CP overnight
- Started on Toprol this admission. Will initiate lisinopril 2.5 mg daily. Uptitration of GDMT for cardiomyopathy as outpatient as able
- No present evidence of acute CHF. Did drug abuse counselor patient on weighing herself daily and calling for weight gain of 3 pounds in a day or 5 pounds in a week or for worsening lower extremity edema or shortness of breath
- Discussed activity restrictions including no heavy lifting greater than 10 pounds. she has been ambulatory around room without issues.
- given known diabetes, on mounjaro as OP, will continue statin. LDL 78.
- in SR without arrhythmias overnight on review of tele. EKG SR with diffuse T wave inversions
- Will need to repeat echo in 3 months to reassess ejection fraction
- continue supportive care of mild covid illness. discussed appropriate precautions in OP setting given father's upcoming
- OP cardiac follow up arranged for next week
- cardiac rehab
- Knows to return to emergency room with recurrent symptoms of chest pain
- Discussed with patient and at bedside. Discussed with hospitalist. Discussed with nursing
Progress Note - Filter Tip Catcher
Subjective
Date of Service: November 02, 2025
No chest pain or shortness of breath overnight. Eager for discharge. Ambulatory around room without difficulty
Objective
Labs:
11/02/25 02:33
11/02/25 02:33
Labs
Hgb 11.6 g/dL (12.0-16.0) L 11/02/25 02:33
Hct 34.7 % (37.0-47.0) L 11/02/25 02:33
Plt Count 159 10^3/uL (130-400) 11/02/25 02:33
APTT Cancelled 11/01/25 19:30
Sodium 136 mmol/L (135-145) 11/02/25 02:33
Potassium 4.0 mmol/L (3.5-5.1) 11/02/25 02:33
BUN 9 mg/dl (7-17) 11/02/25 02:33
Creatinine 0.7 mg/dL (0.6-1.0) 11/02/25 02:33
Glucose 85 mg/dl (70-99) 11/02/25 02:33
Troponins
10/31/25 11/01/25 11/01/25
20:29 00:32 06:17
Troponin I 0.882 H* 2.210 H* D 1.370 H* D
11/01/25
12:30
Troponin I Cancelled
Vital Signs and I&O:
Vital Signs
Temp Pulse Resp BP Pulse Ox
98.7 F 92 18 117/63 99
11/02/25 11:36 11/02/25 07:25 11/02/25 11:36 11/02/25 07:25 11/02/25 11:36
Vital Signs
Temp Pulse Resp BP Pulse Ox
98.7 F 92 18 117/63 99
11/02/25 11:36 11/02/25 07:25 11/02/25 11:36 11/02/25 07:25 11/02/25 11:36
Intake & Output
12/2911/01/25 11/02/25 11/03/25
07:59 07:59 07:59 07:59
Intake Total 190 / 190 480 / 480
Balance 190 / 190 480 / 480
Physical Exam
Physical Exam
GEN: No distress, awake, alert, oriented x3. Sitting in chair
HEENT: supple, anicteric, mmm, EOMI
LUNGS: CTA bilaterally, no wheezes/rales
CV: Reg, S1/S2, no murmur
ABD: soft, BS+, NT/ND
EXT: No cyanosis, clubbing, edema
NEURO: Gross non-focal
SKIN: Warm, pink, dry. No rash. Right wrist site clean dry and intact
--- NOTE | 2025-11-02 13:35 | W.DCSUMMARY ---
Discharge Summary
Discharge Data
Date of Admission: 10/31/25
Date of Discharge: 11/02/25
Total time spent discharging patient (in min): 48
-
Pending Results: No
Hospital Course
Ms. Avila is a 59-year-old female with a medical history of NIDDM (now with normal blood sugars and A1c after starting Mounjaro in January 2025) who presented with substernal chest pressure. She has been under a lot of stress recently with the
illness of both of her parents and the of her father 1 day prior to presentation. She was found to have elevated and rising troponins. She was started on IV heparin drip and nitroglycerin drip. She was admitted for further evaluation and
management.
She was brought for coronary angiography on 11/01 and found to have no obstructive disease. However she was found to have Takotsubo's cardiomyopathy with moderate LV dysfunction. She has been started on metoprolol succinate 12.5 mg twice daily.
She has also been started on low-dose lisinopril and statin therapy. She can continue on low-dose aspirin as well for now until outpatient follow-up with cardiology. Her blood glucose has remained well-controlled and her hemoglobin A1c was 5.3%
during this admission. She should continue her home Mounjaro after discharge. She has been given a short course of low-dose Xanax to help with some of her anxiety that has likely contributed to her cardiomyopathy. She has been instructed to go to
the nearest emergency department or call 911 if she develops shortness of breath or chest pain. At the time of hospital discharge she was medically stable.
General: No Apparent Distress, Comfortable and Conversant
HEENT: NormoCephalic, Moist mucous membranes, Atraumatic
Respiratory: Clear and Non Labored Respirations
Cardiac: S1/S2 and Regular Rhythm; No Rub or Gallop
GI: Soft, Non Tender, Non Distended and Normal Bowel Sounds
Musculoskeletal: No Edema, no deformity, right radial vascular access site CDI
: NO Martinez
Neuro: Awake, Alert, Nonfocal/grossly intact
Psych: Calm and Intact Judgment/Insight
Discharge Plan
-
Patient Disposition: Home (Routine Discharge)
Discharge Diagnosis/Procedures: Cardiac cath Takotsubo cardiomyopathy
Diet: Low Sodium
Activity: No strenuous activity
Additional Activity: no heavy lifting greater than 10 pounds for 2 weeks!
Driving Restrictions: No driving for 24 hours
Specialty Instructions: Weigh Daily- Call MD for wt gain/loss 3 lbs overnight/5 lbs in 1 week
Stand Alone Forms: DC Instructions- Cath/EP Lab
Referrals:
Benita Newton DO [Family Provider, Family Practice]
Bella Perez CRNP [Specified Professional Personl, Cardiology] - 11/08/25 3:40 pm
Referral Note: You have a cardiology follow-up appointment at the [place] office. Please call with questions
Prescriptions:
New
atorvastatin 20 mg Tablet
20 mg PO QPM Qty: 90 0RF
aspirin 81 mg Tablet,Chewable
81 mg PO DAILY Qty: 90 0RF
metoprolol succinate 25 mg Tablet Extended Release 24 Hr
12.5 mg PO BID Qty: 90 0RF
lisinopril 2.5 mg Tablet
2.5 mg PO DAILY Qty: 90 0RF
alprazolam [Xanax] 0.25 mg tablet
0.25 mg PO BID PRN (Reason: anxiety) Qty: 20 0RF
Continued
Mounjaro 15 mg/0.5 mL pen injector
15 mg SC WEEKLY
Discharge Orders:
Discharge Patient (As Directed); Ordered 11/02/25
Ordered By: Demar Arvizu
Care Plan Goals
Care Plan Goals:
Problem: Readiness for enhanced knowledge related to diagnosis and treatment plan
Goal: Understand your diagnosis and treatment plan needs, including medications if applicable.
Instructions: Know your diagnosis, underlying causes and treatment plan options, including medications if applicable. Consult with your health care team to learn about your diagnosis and treatment plan, including medications if applicable.
Discharge Date and Time
Print Language: SALVADOREAN
[2025-11-02] MEDS: ZESTRIL 2.5 MG PO (14:19)
== END 2025-11-02 14:57 | disposition home or self-care (01) | DRG 286 ==
LOC: IVU 23:42
PROVIDERS: Internal Medicine Interventional Cardiology; Physician Assistant; Physician Assistant Medical; ADMITTING PHYSICIAN Hospitalist; ATTENDING PHYSICIAN Internal Medicine; CONSULT PHYSICIAN Internal Medicine Cardiovascular Disease; EMERGENCY PHYSICIAN Emergency Medicine; FAMILY PHYSICIAN Internal Medicine
PROC: B2151ZZ Fluoroscopy of Left Heart using Low Osmolar Contrast (ICD-10-PCS; 2025-11-01)
PROC: 4A023N7 Measurement of Cardiac Sampling and Pressure, Left Heart, Percutaneous Approach (ICD-10-PCS; 2025-11-01)
PROC: B2111ZZ Fluoroscopy of Multiple Coronary Arteries using Low Osmolar Contrast (ICD-10-PCS; 2025-11-01)
DX: I51.81 Takotsubo syndrome (principal); U07.1 COVID-19; E11.9 Type 2 diabetes mellitus without complications; E78.5 Hyperlipidemia, unspecified; E87.6 Hypokalemia; I25.10 Atherosclerotic heart disease of native coronary artery without angina pectoris; Z63.4 Disappearance and death of family member; Z79.84 Long term (current) use of oral hypoglycemic drugs; Z79.899 Other long term (current) drug therapy; Z87.891 Personal history of nicotine dependence
CPT/HCPCS: 71046; 80048; 80053; 80061; 82962; 83036; 83735; 83880; 84443; 84484; 85025; 85027; 85730; 86140; 87502; 87811; 93005; 93306; 93458; 96374; 96375; 96376; 99152; 99153; 99291; C1769; Q9967